=== PATIENT | female | born 1980 | race African-American/Black ===

== ENCOUNTER 2017-03-20 10:44 | Emergency (ER) | payer MEDICAID ==
[~2017-03-20] VITALS: Ht 165.1 cm; Wt 138.0 kg
[2017-03-20] MEDS ORDERED: IBUPROFEN 600MG TABLET PO STA (11:04)
[2017-03-20 11:25] LABS: BASOPHILS % 1.2 % (0.0-2.0); DIFFERENTIAL COMMENT 0; EOSINOPHILS % 1.1 % (0.0-5.0); HEMOGLOBIN. 12.6 g/dL (12.0-16.0); LYMPHOCYTES % 23.5 % (20.0-50.0); MEAN CORPUSCULAR HEMOGLOBIN 25.9 pg (28.0-32.0); MEAN CORPUSCULAR HGB CONC 33.2 g/dL (31.0-37.0); MEAN CORPUSCULAR VOLUME 78.1 fL (81.0-99.0); MEAN PLATELET VOLUME 7.1 fl (7.4-10.4); MONOCYTES % 6.5 % (2.0-8.0); NEUTROPHILS % 67.7 % (40.0-76.0); PLATELET 212 x1000/uL (130-400); RED BLOOD CELL COUNT 4.86 mill/uL (4.2-5.4); RED CELL DISTRIBUTION WIDTH 14.2 % (11.6-14.6)
[2017-03-20 11:28] LABS: CHLORIDE 105 mEq/L (98-107); INDEX HEMOLYSI 1 (1-3); INDEX ICTERIC 1 (1-4); INDEX LIPEMIC 1 (1-3)
[2017-03-20 11:37] LABS: ALANINE AMINOTRANSFERASE 32 IU/L (13-61); ALBUMIN 3.4 g/dL (3.4-5.0); ANION GAP 9; CALCIUM 8.2 mg/dL (8.5-10.1); CARBON DIOXIDE 30 mEq/L (21-32); UREA NITROGEN BLOOD 6 mg/dL (7-21); eGFR > 60 mL/min (>60)
[2017-03-20 11:43] LABS: HCG SCREEN NEGATIVE
[2017-03-20 13:12] VITALS: BP 156/80
== END 2017-03-20 13:50 | disposition home or self-care (01) ==
LOC: ER 13:49
DX: R07.89 Other chest pain (principal); Z88.5 Allergy status to narcotic agent; Z90.49 Acquired absence of other specified parts of digestive tract
CPT/HCPCS: 36415; 71010; 80053; 84703; 85025; 93005; 99285; Z7610

== ENCOUNTER 2017-05-18 09:36 | Emergency (ER) | payer MEDICAID ==
[~2017-05-18] VITALS: Ht 165.1 cm; Wt 137.0 kg
[2017-05-18 09:40] VITALS: BP 134/93
== END 2017-05-18 18:26 | disposition left against medical advice (07) ==
LOC: ER 09:36
DX: R60.0 Localized edema (principal); R06.02 Shortness of breath; Z53.21 Procedure and treatment not carried out due to patient leaving prior to being seen by health care provider

== ENCOUNTER 2017-11-09 14:38 | Emergency (ER) | payer MEDICAID ==
[~2017-11-09] VITALS: Ht 165.1 cm; Wt 136.0 kg
[2017-11-09] MEDS ORDERED: IBUPROFEN 600MG TABLET PO ONE (15:15)
[2017-11-09 15:52] VITALS: BP 130/89
== END 2017-11-09 15:53 | disposition home or self-care (01) ==
LOC: ER 15:49
DX: R07.89 Other chest pain (principal); M79.89 Other specified soft tissue disorders; K21.9 Gastro-esophageal reflux disease without esophagitis; J45.909 Unspecified asthma, uncomplicated; Z88.5 Allergy status to narcotic agent
CPT/HCPCS: 93005; 99283; Z7610

== ENCOUNTER 2018-10-31 11:34 | Emergency (ER) | payer MEDICAID ==
[~2018-10-31] VITALS: Ht 165.1 cm; Wt 91.0 kg
[2018-10-31 16:14] VITALS: BP 151/81
== END 2018-10-31 16:14 | disposition home or self-care (01) ==
LOC: ER 11:34
DX: K04.7 Periapical abscess without sinus (principal); J45.909 Unspecified asthma, uncomplicated; Z88.5 Allergy status to narcotic agent; Z90.49 Acquired absence of other specified parts of digestive tract
CPT/HCPCS: 99283